=== PATIENT | female | born 1950 | race Caucasian/White ===

== ENCOUNTER 2017-09-07 14:19 | Outpatient (CLI) | payer OTHER ==
[~2017-09-07 14:19] MED LIST: ATORVASTATIN CA20 MG; CARDIZEM120 MG; FLECAINIDE ACE100 MG; ISOSORBIDE DINI30 MG; LEVSIN0.125 MG PO; LIPITOR20 MG; NEURONTIN300 MG PO; PRILOSEC20 MG; PROTONIX40 MG PO; XARELTO20 MG; ZOLOFT50 MG
== END 2017-09-07 14:40 | disposition home or self-care (01) ==
LOC: MRI 14:19
DX: G30.1 Alzheimer's disease with late onset (principal); F01.50 Vascular dementia, unspecified severity, without behavioral disturbance, psychotic disturbance, mood disturbance, and anxiety
CPT/HCPCS: 70551

== ENCOUNTER → 2017-09-12 | Outpatient (CLI) | payer OTHER | END | disposition home or self-care (01) | LOC: LAB 07:59 | DX: E53.8 Deficiency of other specified B group vitamins (principal); G93.41 Metabolic encephalopathy; E03.8 Other specified hypothyroidism ==

== ENCOUNTER 2017-10-24 08:16 | Outpatient (CLI) | payer OTHER | END 2017-10-24 08:23 | disposition home or self-care (01) | LOC: LAB 08:16 | DX: R10.13 Epigastric pain (principal); K30 Functional dyspepsia ==

== ENCOUNTER 2017-10-24 08:44 | Outpatient (CLI) | payer OTHER | END 2017-10-24 17:00 | disposition home or self-care (01) | LOC: SONOGRAMA 08:44 | DX: R10.13 Epigastric pain (principal); K30 Functional dyspepsia ==

== ENCOUNTER 2017-10-24 08:53 | Outpatient (CLI) | payer OTHER | END 2017-10-24 17:00 | disposition home or self-care (01) | LOC: RX STUDY 08:53 | DX: R10.13 Epigastric pain (principal); K30 Functional dyspepsia ==

== ENCOUNTER 2017-11-14 07:13 | Outpatient (CLI) | payer OTHER | END 2017-11-14 07:20 | disposition home or self-care (01) | LOC: LAB 07:13 | DX: D64.89 Other specified anemias (principal); N39.0 Urinary tract infection, site not specified; E03.8 Other specified hypothyroidism; R80.8 Other proteinuria; E78.5 Hyperlipidemia, unspecified; E11.9 Type 2 diabetes mellitus without complications; R73.09 Other abnormal glucose; I48.0 Paroxysmal atrial fibrillation; I11.9 Hypertensive heart disease without heart failure; R73.02 Impaired glucose tolerance (oral); E78.2 Mixed hyperlipidemia; R10.84 Generalized abdominal pain ==

== ENCOUNTER 2018-01-04 07:06 | Outpatient (CLI) | payer OTHER | END 2018-01-04 07:15 | disposition home or self-care (01) | LOC: NUCLEAR 07:06 | DX: R10.13 Epigastric pain (principal); K30 Functional dyspepsia | CPT/HCPCS: 78227; A9537; J2805 ==

== ENCOUNTER 2018-04-27 07:55 | Outpatient (CLI) | payer OTHER | END 2018-04-27 08:07 | disposition home or self-care (01) | LOC: LAB 07:55 | DX: N91.2 Amenorrhea, unspecified (principal); E34.8 Other specified endocrine disorders; R19.00 Intra-abdominal and pelvic swelling, mass and lump, unspecified site; N39.0 Urinary tract infection, site not specified; N30.00 Acute cystitis without hematuria ==

== ENCOUNTER 2018-06-22 07:30 | Outpatient (CLI) | payer OTHER | END 2018-06-22 07:35 | disposition home or self-care (01) | LOC: LAB 07:30 | DX: E11.9 Type 2 diabetes mellitus without complications (principal); I10 Essential (primary) hypertension; E03.8 Other specified hypothyroidism; E78.2 Mixed hyperlipidemia; M81.0 Age-related osteoporosis without current pathological fracture ==

== ENCOUNTER 2018-07-19 08:50 | Outpatient (CLI) | payer OTHER | END 2018-07-19 08:55 | disposition home or self-care (01) | LOC: LAB 08:50 | DX: R10.13 Epigastric pain (principal); K30 Functional dyspepsia ==

== ENCOUNTER → 2018-07-24 | Outpatient (CLI) | payer OTHER | END | disposition home or self-care (01) | LOC: TOM 07:30 | DX: R10.12 Left upper quadrant pain (principal) | CPT/HCPCS: 74177; Q9965 ==

== ENCOUNTER 2018-09-13 11:33 | Outpatient (CLI) | payer OTHER | END 2018-09-13 17:00 | disposition home or self-care (01) | LOC: MAMO-SONO 11:33 | DX: Z12.31 Encounter for screening mammogram for malignant neoplasm of breast (principal); Z87.898 Personal history of other specified conditions; N64.89 Other specified disorders of breast; I10 Essential (primary) hypertension; M54.5 Low back pain; E03.8 Other specified hypothyroidism; E66.8 Other obesity; M89.8X0 Other specified disorders of bone, multiple sites; G62.89 Other specified polyneuropathies; Z12.11 Encounter for screening for malignant neoplasm of colon; I11.9 Hypertensive heart disease without heart failure; K21.9 Gastro-esophageal reflux disease without esophagitis; F41.8 Other specified anxiety disorders; M54.14 Radiculopathy, thoracic region ==

== ENCOUNTER 2018-09-17 09:24 | Outpatient (CLI) | payer OTHER | END 2018-09-17 09:39 | disposition home or self-care (01) | LOC: LAB 09:24 | DX: I10 Essential (primary) hypertension (principal); M54.5 Low back pain; E03.8 Other specified hypothyroidism; E66.8 Other obesity; K21.9 Gastro-esophageal reflux disease without esophagitis; M54.14 Radiculopathy, thoracic region; I11.9 Hypertensive heart disease without heart failure; Z12.11 Encounter for screening for malignant neoplasm of colon; M89.8X8 Other specified disorders of bone, other site; G62.89 Other specified polyneuropathies; F41.8 Other specified anxiety disorders; I49.8 Other specified cardiac arrhythmias; I73.89 Other specified peripheral vascular diseases ==

== ENCOUNTER 2018-09-18 12:00 | Outpatient (CLI) | payer OTHER | END 2018-09-18 16:38 | disposition home or self-care (01) | LOC: LAB 12:00 | DX: I10 Essential (primary) hypertension (principal); M54.5 Low back pain; E03.8 Other specified hypothyroidism; E66.8 Other obesity; M89.8X9 Other specified disorders of bone, unspecified site; G62.89 Other specified polyneuropathies; K21.9 Gastro-esophageal reflux disease without esophagitis; F41.8 Other specified anxiety disorders; M54.14 Radiculopathy, thoracic region; I11.9 Hypertensive heart disease without heart failure; Z12.11 Encounter for screening for malignant neoplasm of colon; I73.89 Other specified peripheral vascular diseases; I49.8 Other specified cardiac arrhythmias ==

== ENCOUNTER 2018-11-21 14:42 | Outpatient (CLI) | payer OTHER | END 2018-11-21 14:45 | disposition home or self-care (01) | LOC: LAB 14:42 | DX: D64.0 Hereditary sideroblastic anemia (principal); R10.9 Unspecified abdominal pain ==

== ENCOUNTER 2018-11-22 08:05 | Outpatient (CLI) | payer OTHER | END 2018-11-22 12:04 | disposition home or self-care (01) | LOC: LAB 08:05 | DX: D64.0 Hereditary sideroblastic anemia (principal); R10.9 Unspecified abdominal pain ==

== ENCOUNTER 2019-03-18 08:42 | Outpatient (CLI) | payer OTHER | END 2019-03-18 10:51 | disposition home or self-care (01) | LOC: TOM 08:42 | DX: R10.84 Generalized abdominal pain (principal) ==

== ENCOUNTER 2019-03-22 07:14 | Outpatient (CLI) | payer OTHER | END 2019-03-22 07:16 | disposition home or self-care (01) | LOC: NUCLEAR 07:14 | DX: I20.8 Other forms of angina pectoris (principal) | CPT/HCPCS: 78452; 93017; A9500; J0153 ==

== ENCOUNTER 2019-06-05 09:10 | Outpatient (CLI) | payer OTHER | END 2019-06-05 09:20 | disposition home or self-care (01) | LOC: LAB 09:10 | DX: I11.9 Hypertensive heart disease without heart failure (principal); K59.1 Functional diarrhea; R19.5 Other fecal abnormalities ==

== ENCOUNTER 2019-06-10 08:50 | Outpatient (CLI) | payer OTHER | END 2019-06-10 09:00 | disposition home or self-care (01) | LOC: SONOGRAMA 08:50 | DX: R10.2 Pelvic and perineal pain (principal); R10.827 Generalized rebound abdominal tenderness ==

== ENCOUNTER 2019-06-20 07:28 | Emergency (ER) | payer OTHER ==
[~2019-06-20] VITALS: Ht 170.2 cm; Wt 61.2 kg
[2019-06-20] MEDS ORDERED: PROPAFENONE HC225 M1 (07:45)
[2019-06-20] MEDS ORDERED: METOCLOPRAMIDE H5 M1 (07:46)
[2019-06-20] MEDS ORDERED: PEPCID AC20 MG (07:47)
[2019-06-20] MEDS ORDERED: [UNRECOGNIZED DRUG - OTHER] (07:48)
[2019-06-20] MEDS ORDERED: ACID REDUCER20 M1 (07:49)
== END 2019-06-20 10:56 | disposition home or self-care (01) ==
LOC: ER 07:28
DX: K52.89 Other specified noninfective gastroenteritis and colitis (principal)

== ENCOUNTER 2019-07-05 10:01 | Outpatient (CLI) | payer OTHER ==
[~2019-07-05 10:01] MED LIST changes: +ACID REDUCER20 M1; +METOCLOPRAMIDE H5 M1; +PEPCID AC20 MG; +PROPAFENONE HC225 M1; +[UNRECOGNIZED DRUG - OTHER]
== END 2019-07-05 10:06 | disposition home or self-care (01) ==
LOC: LAB 10:01
DX: R10.84 Generalized abdominal pain (principal); R19.5 Other fecal abnormalities

== ENCOUNTER 2019-07-26 19:26 | Emergency (ER) | payer OTHER ==
[~2019-07-26] VITALS: Ht 170.2 cm; Wt 63.0 kg
== END 2019-07-26 23:15 | disposition home or self-care (01) ==
LOC: ER 19:26
DX: K52.89 Other specified noninfective gastroenteritis and colitis (principal)

== ENCOUNTER 2019-09-03 19:44 | Emergency (ER) | payer OTHER ==
[~2019-09-03] VITALS: Ht 170.2 cm; Wt 62.6 kg
[2019-09-04] MEDS ORDERED: ENULOSE10 GM/15 M PO (05:58)
== END 2019-09-04 06:11 | disposition home or self-care (01) ==
LOC: ER 19:44
DX: K59.09 Other constipation (principal); R10.84 Generalized abdominal pain

== ENCOUNTER 2019-09-10 09:48 | Emergency (ER) | payer OTHER ==
[~2019-09-10] VITALS: Ht 167.6 cm; Wt 59.9 kg
[~2019-09-10 09:48] MED LIST changes: +ENULOSE10 GM/15 M PO
== END 2019-09-10 14:42 | disposition home or self-care (01) ==
LOC: ER 09:48
DX: K80.80 Other cholelithiasis without obstruction (principal); N28.1 Cyst of kidney, acquired

== ENCOUNTER 2019-09-16 13:47 | Emergency (ER) | payer OTHER ==
[~2019-09-16] VITALS: Ht 154.9 cm; Wt 62.6 kg
== END 2019-09-16 15:44 | disposition left against medical advice (07) ==
LOC: ER 13:47
DX: R07.89 Other chest pain (principal); F41.8 Other specified anxiety disorders

== ENCOUNTER 2019-09-18 11:24 | Emergency (ER) | payer OTHER ==
[~2019-09-18] VITALS: Ht 170.2 cm; Wt 59.9 kg
== END 2019-09-18 14:58 | disposition home or self-care (01) ==
LOC: ER 11:24
DX: R07.89 Other chest pain (principal)

== ENCOUNTER 2019-09-22 14:32 | Emergency (ER) | payer OTHER ==
[~2019-09-22] VITALS: Ht 170.2 cm; Wt 61.2 kg
== END 2019-09-23 01:04 | disposition home or self-care (01) ==
LOC: ER 14:32
DX: G45.8 Other transient cerebral ischemic attacks and related syndromes (principal)

== ENCOUNTER 2019-10-02 08:22 | Outpatient (CLI) | payer OTHER | END 2019-10-02 09:23 | disposition home or self-care (01) | LOC: TOM 08:22 | DX: R10.84 Generalized abdominal pain (principal) ==

== ENCOUNTER 2019-10-02 10:23 | Outpatient (CLI) | payer OTHER | END 2019-10-02 10:24 | disposition home or self-care (01) | LOC: LAB 10:23 | DX: E11.9 Type 2 diabetes mellitus without complications (principal); I10 Essential (primary) hypertension; E03.8 Other specified hypothyroidism; E78.2 Mixed hyperlipidemia; Z12.11 Encounter for screening for malignant neoplasm of colon; D64.0 Hereditary sideroblastic anemia; C78.00 Secondary malignant neoplasm of unspecified lung; R63.4 Abnormal weight loss; K51.90 Ulcerative colitis, unspecified, without complications; R97.1 Elevated cancer antigen 125 [CA 125]; E04.2 Nontoxic multinodular goiter; R97.8 Other abnormal tumor markers; C79.81 Secondary malignant neoplasm of breast; R19.00 Intra-abdominal and pelvic swelling, mass and lump, unspecified site; C18.8 Malignant neoplasm of overlapping sites of colon; K85.80 Other acute pancreatitis without necrosis or infection ==

== ENCOUNTER 2019-10-08 13:10 | Emergency (ER) | payer OTHER ==
[~2019-10-08] VITALS: Ht 170.2 cm; Wt 60.8 kg
== END 2019-10-08 15:43 | disposition home or self-care (01) ==
LOC: ER 13:10
DX: R07.89 Other chest pain (principal); F06.4 Anxiety disorder due to known physiological condition

== ENCOUNTER 2019-11-06 13:47 | Emergency (ER) | payer OTHER ==
[~2019-11-06] VITALS: Ht 170.2 cm; Wt 61.2 kg
== END 2019-11-06 16:55 | disposition home or self-care (01) ==
LOC: ER 13:47
DX: R10.84 Generalized abdominal pain (principal)

== ENCOUNTER 2019-11-08 11:48 | Emergency (ER) | payer OTHER ==
[~2019-11-08] VITALS: Ht 170.2 cm; Wt 61.2 kg
== END 2019-11-08 13:03 | disposition home or self-care (01) ==
LOC: ER 11:48
DX: R00.2 Palpitations (principal); F41.1 Generalized anxiety disorder

== ENCOUNTER 2020-01-10 09:47 | Emergency (ER) | payer OTHER ==
[~2020-01-10] VITALS: Ht 170.2 cm; Wt 56.7 kg
== END 2020-01-10 11:06 | disposition home or self-care (01) ==
LOC: ER 09:47
DX: I49.8 Other specified cardiac arrhythmias (principal); F41.8 Other specified anxiety disorders

== ENCOUNTER 2020-01-20 12:21 | Emergency (ER) | payer OTHER ==
[~2020-01-20] VITALS: Ht 170.2 cm; Wt 59.0 kg
[2020-01-20] MEDS ORDERED: DICY20TA PO (12:36)
[2020-01-20] MEDS ORDERED: ARICEPT10 MG PO (12:37)
[2020-01-20] MEDS ORDERED: HYDROXYZIN10 MG/5 ML PO (12:37)
[2020-01-20] MEDS ORDERED: PEPCID AC20 MG PO (13:29)
== END 2020-01-20 14:00 | disposition home or self-care (01) ==
LOC: ER 12:21
DX: K29.60 Other gastritis without bleeding (principal)

== ENCOUNTER 2020-01-22 11:19 | Emergency (ER) | payer OTHER ==
[~2020-01-22] VITALS: Ht 170.2 cm; Wt 56.7 kg
[~2020-01-22 11:19] MED LIST changes: +ARICEPT10 MG PO; +DICY20TA PO; +HYDROXYZIN10 MG/5 ML PO; +PEPCID AC20 MG PO
[2020-01-22] MEDS ORDERED: PEPCID AC20 MG PO (12:40)
[2020-01-22] MEDS ORDERED: INTESTINEX680 M1 PO (12:40)
== END 2020-01-22 12:56 | disposition home or self-care (01) ==
LOC: ER 11:19
DX: K29.60 Other gastritis without bleeding (principal)

== ENCOUNTER 2020-02-01 12:35 | Emergency (ER) | payer OTHER ==
[~2020-02-01] VITALS: Ht 170.2 cm; Wt 57.2 kg
[~2020-02-01 12:35] MED LIST changes: +INTESTINEX680 M1 PO
== END 2020-02-01 14:07 | disposition home or self-care (01) ==
LOC: ER 12:35
DX: K29.60 Other gastritis without bleeding (principal)

== ENCOUNTER → 2020-02-07 | Emergency (ER) | payer OTHER ==
[~2020-02-07] VITALS: Ht 170.2 cm; Wt 56.7 kg
[~2020-02-07] MED LIST changes: +CARAFATE1 GM/10 ML PO; +OMEPRAZOLE MAGN20 MG PO; +ONDANSETRON HCL4 MG PO; +SYSTANE COMPLE1.5 ML OP; +XIIDRA1 EACH OP; +ZOFRAN8 MG PO
== END | disposition left against medical advice (07) ==
LOC: ER 14:11 → EKG 14:25 → ER 14:25
DX: Z53.21 Procedure and treatment not carried out due to patient leaving prior to being seen by health care provider (principal)

== ENCOUNTER 2020-02-10 12:49 | Emergency (ER) | payer OTHER ==
[~2020-02-10] VITALS: Ht 170.2 cm; Wt 55.8 kg
[~2020-02-10 12:49] MED LIST changes: -CARAFATE1 GM/10 ML PO; -OMEPRAZOLE MAGN20 MG PO; -ONDANSETRON HCL4 MG PO; -SYSTANE COMPLE1.5 ML OP; -XIIDRA1 EACH OP; -ZOFRAN8 MG PO
[2020-02-10] MEDS ORDERED: ONDANSETRON HCL4 MG PO (13:15)
[2020-02-10] MEDS ORDERED: CARAFATE1 GM/10 ML PO (13:15)
[2020-02-10] MEDS ORDERED: SYSTANE COMPLE1.5 ML OP (13:15)
[2020-02-10] MEDS ORDERED: XIIDRA1 EACH OP (13:15)
[2020-02-10] MEDS ORDERED: OMEPRAZOLE MAGN20 MG PO (13:16)
[2020-02-10] MEDS ORDERED: ZOFRAN8 MG PO (13:17)
[2020-02-10] MEDS ORDERED: PEPCID AC20 MG PO (13:59)
[2020-02-11] MEDS ORDERED: PEPCID AC20 MG PO (15:45)
== END 2020-02-10 14:08 | disposition home or self-care (01) ==
LOC: ER 12:49
DX: K29.60 Other gastritis without bleeding (principal); Z76.0 Encounter for issue of repeat prescription

== ENCOUNTER 2020-02-11 13:57 | Emergency (ER) | payer OTHER ==
[~2020-02-11] VITALS: Ht 170.2 cm; Wt 56.7 kg
[~2020-02-11 13:57] MED LIST changes: +CARAFATE1 GM/10 ML PO; +OMEPRAZOLE MAGN20 MG PO; +ONDANSETRON HCL4 MG PO; +SYSTANE COMPLE1.5 ML OP; +XIIDRA1 EACH OP; +ZOFRAN8 MG PO
[2020-02-11] MEDS ORDERED: PEPCID AC20 MG PO (15:45)
== END 2020-02-11 15:59 | disposition home or self-care (01) ==
LOC: ER 13:57
DX: K29.50 Unspecified chronic gastritis without bleeding (principal); R10.13 Epigastric pain; Z60.2 Problems related to living alone

== ENCOUNTER 2020-02-25 12:14 | Emergency (ER) | payer OTHER ==
[~2020-02-25] VITALS: Ht 170.2 cm; Wt 63.5 kg
== END 2020-02-25 13:25 | disposition home or self-care (01) ==
LOC: ER 12:14
DX: K29.60 Other gastritis without bleeding (principal)

== ENCOUNTER 2020-03-06 16:32 | Emergency (ER) | payer OTHER ==
[~2020-03-06] VITALS: Ht 170.2 cm; Wt 56.2 kg
[2020-03-06] MEDS ORDERED: CIPRO500 MG (16:50)
[2020-03-06] MEDS ORDERED: PROTONIX40 M1 (16:51)
[2020-03-06] MEDS ORDERED: CARDIZEM120 MG (23:46)
[2020-03-06] MEDS ORDERED: ATORVASTATIN CA20 MG (23:46)
[2020-03-06] MEDS ORDERED: PANTOPRAZOLE SO40 MG (23:46)
[2020-03-06] MEDS ORDERED: PROPAFENONE HC225 M1 (23:47)
== END 2020-03-06 17:46 | disposition home or self-care (01) ==
LOC: ER 16:32
DX: R10.13 Epigastric pain (principal)

== ENCOUNTER 2020-03-06 22:40 | Emergency (ER) | payer OTHER ==
[~2020-03-06] VITALS: Ht 170.2 cm; Wt 56.2 kg
[~2020-03-06 22:40] MED LIST changes: +CIPRO500 MG; +PROTONIX40 M1
[2020-03-06] MEDS ORDERED: CARDIZEM120 MG (23:46)
[2020-03-06] MEDS ORDERED: ATORVASTATIN CA20 MG (23:46)
[2020-03-06] MEDS ORDERED: PANTOPRAZOLE SO40 MG (23:46)
[2020-03-06] MEDS ORDERED: PROPAFENONE HC225 M1 (23:47)
== END 2020-03-07 02:28 | disposition left against medical advice (07) ==
LOC: ER 22:40
DX: I49.8 Other specified cardiac arrhythmias (principal)

== ENCOUNTER 2020-03-10 08:58 | Emergency (ER) | payer OTHER ==
[~2020-03-10] VITALS: Ht 170.2 cm; Wt 55.8 kg
[~2020-03-10 08:58] MED LIST changes: +PANTOPRAZOLE SO40 MG
[2020-03-10] MEDS ORDERED: PEPCID AC20 MG PO (11:20)
== END 2020-03-10 11:31 | disposition home or self-care (01) ==
LOC: ER 08:58
DX: K29.00 Acute gastritis without bleeding (principal); Z03.818 Encounter for observation for suspected exposure to other biological agents ruled out

== ENCOUNTER 2020-03-23 23:09 | Emergency (ER) | payer OTHER ==
[~2020-03-23] VITALS: Ht 170.2 cm; Wt 56.2 kg
[2020-03-24] MEDS ORDERED: VISTARIL50 MG PO (01:40)
== END 2020-03-24 02:04 ==
LOC: ER 23:09
DX: R00.2 Palpitations (principal)

== ENCOUNTER 2020-03-26 08:51 | Emergency (ER) | payer OTHER ==
[~2020-03-26] VITALS: Ht 162.6 cm; Wt 54.4 kg
[~2020-03-26 08:51] MED LIST changes: +VISTARIL50 MG PO
[2020-03-26] MEDS ORDERED: PEPCID AC20 MG PO (13:13)
[2020-03-26] MEDS ORDERED: APETIGEN-PLUS1 EACH PO (13:13)
== END 2020-03-26 14:30 | disposition home or self-care (01) ==
LOC: ER 08:51
DX: K29.00 Acute gastritis without bleeding (principal)

== ENCOUNTER 2020-04-03 09:18 | Emergency (ER) | payer OTHER ==
[~2020-04-03] VITALS: Ht 170.2 cm; Wt 59.0 kg
[~2020-04-03 09:18] MED LIST changes: +APETIGEN-PLUS1 EACH PO
== END 2020-04-03 09:50 | disposition home or self-care (01) ==
LOC: ER 09:18
DX: K29.70 Gastritis, unspecified, without bleeding (principal)

== ENCOUNTER 2020-04-07 08:35 | Emergency (ER) | payer OTHER ==
[~2020-04-07] VITALS: Ht 170.2 cm; Wt 54.9 kg
[2020-04-07] MEDS ORDERED: CARAFATE1 GM PO (13:46)
[2020-04-07] MEDS ORDERED: PEPCID20 MG PO (13:46)
== END 2020-04-07 13:52 | disposition home or self-care (01) ==
LOC: ER 08:35
DX: R10.13 Epigastric pain (principal); K25.9 Gastric ulcer, unspecified as acute or chronic, without hemorrhage or perforation; Z20.828 Contact with and (suspected) exposure to other viral communicable diseases

== ENCOUNTER 2020-04-08 09:49 | Outpatient (CLI) | payer OTHER ==
[~2020-04-08 09:49] MED LIST changes: +CARAFATE1 GM PO; +PEPCID20 MG PO
== END 2020-04-08 17:37 | disposition home or self-care (01) ==
LOC: LAB 09:49
PROVIDERS: ATTEND Internal Medicine Cardiovascular Disease
DX: R05 Cough (principal); Z20.828 Contact with and (suspected) exposure to other viral communicable diseases; R06.2 Wheezing; R50.9 Fever, unspecified

== ENCOUNTER → 2020-04-13 | Emergency (ER) | payer OTHER ==
[~2020-04-13] VITALS: Ht 162.6 cm; Wt 63.5 kg
== END | disposition left against medical advice (07) ==
LOC: ER 10:47
DX: Z53.21 Procedure and treatment not carried out due to patient leaving prior to being seen by health care provider (principal)

== ENCOUNTER → 2020-04-16 | Outpatient (CLI) | payer OTHER | END | disposition home or self-care (01) | LOC: SONOGRAMA 10:08 | PROVIDERS: ATTEND Radiology Diagnostic Radiology | DX: R10.84 Generalized abdominal pain (principal) ==

== ENCOUNTER 2020-04-19 11:42 | Emergency (ER) | payer OTHER ==
[~2020-04-19] VITALS: Ht 170.2 cm; Wt 54.4 kg
== END 2020-04-19 15:02 | disposition home or self-care (01) ==
LOC: ER 11:42
DX: K52.89 Other specified noninfective gastroenteritis and colitis (principal); I49.8 Other specified cardiac arrhythmias; F41.8 Other specified anxiety disorders

== ENCOUNTER → 2020-04-22 | Emergency (ER) | payer OTHER ==
[~2020-04-22] VITALS: Ht 170.2 cm; Wt 55.8 kg
== END | disposition left against medical advice (07) ==
LOC: ER 16:35
DX: R07.89 Other chest pain (principal); F06.4 Anxiety disorder due to known physiological condition; R10.13 Epigastric pain

== ENCOUNTER → 2020-04-24 | Emergency (ER) | payer OTHER ==
[~2020-04-24] VITALS: Ht 170.2 cm; Wt 59.0 kg
== END | disposition left against medical advice (07) ==
LOC: ER 15:01
DX: Z53.21 Procedure and treatment not carried out due to patient leaving prior to being seen by health care provider (principal)

== ENCOUNTER 2021-07-13 12:51 | Emergency (ER) | payer OTHER ==
[~2021-07-13] VITALS: Ht 170.2 cm; Wt 51.3 kg
[2021-07-13] MEDS ORDERED: FAMOTIDINE10 MG (13:32)
[2021-07-13] MEDS ORDERED: FAMOTIDINE20 MG PO (13:32)
[2021-07-13] MEDS ORDERED: DILTIAZEM ER120 M2 (13:33)
[2021-07-13] MEDS ORDERED: PANTOPRAZOLE SO40 MG PO (13:34)
[2021-07-13] MEDS ORDERED: APETIGEN-PLUS1 EACH PO (13:34)
[2021-07-13] MEDS ORDERED: XARELTO20 MG PO (13:35)
[2021-07-16] MEDS ORDERED: APETIGEN-PLUS1 EACH (18:51)
== END 2021-07-13 17:09 | disposition home or self-care (01) ==
LOC: ER 12:51
DX: R07.89 Other chest pain (principal)

== ENCOUNTER 2021-07-15 12:11 | Emergency (ER) | payer OTHER ==
[~2021-07-15] VITALS: Ht 170.2 cm; Wt 49.9 kg
[~2021-07-15 12:11] MED LIST changes: +DILTIAZEM ER120 M2; +FAMOTIDINE10 MG; +FAMOTIDINE20 MG PO; +PANTOPRAZOLE SO40 MG PO; +XARELTO20 MG PO
[2021-07-16] MEDS ORDERED: APETIGEN-PLUS1 EACH (18:51)
== END 2021-07-15 13:49 | disposition home or self-care (01) ==
LOC: ER 12:11
DX: K29.70 Gastritis, unspecified, without bleeding (principal)

== ENCOUNTER → 2021-07-16 | Emergency (ER) | payer OTHER ==
[~2021-07-16] VITALS: Ht 165.1 cm; Wt 49.9 kg
[~2021-07-16] MED LIST changes: +APETIGEN-PLUS1 EACH; +DOLOGESIC 500-1 EACH PO; +DULCOLAX5 MG PO; +GAS-X125 M1 PO
== END | disposition left against medical advice (07) ==
LOC: ER 18:36
DX: R10.13 Epigastric pain (principal); K29.70 Gastritis, unspecified, without bleeding

== ENCOUNTER 2021-07-18 15:04 | Emergency (ER) | payer OTHER ==
[~2021-07-18] VITALS: Ht 170.2 cm; Wt 49.9 kg
[~2021-07-18 15:04] MED LIST changes: -DOLOGESIC 500-1 EACH PO; -DULCOLAX5 MG PO; -GAS-X125 M1 PO
[2021-07-18] MEDS ORDERED: DULCOLAX5 MG PO (15:29)
[2021-07-18] MEDS ORDERED: GAS-X125 M1 PO (15:29)
== END 2021-07-18 15:48 | disposition home or self-care (01) ==
LOC: ER 15:04
DX: K59.00 Constipation, unspecified (principal)

== ENCOUNTER 2021-07-19 18:00 | Emergency (ER) | payer OTHER ==
[~2021-07-19] VITALS: Ht 170.2 cm; Wt 56.7 kg
[~2021-07-19 18:00] MED LIST changes: +DULCOLAX5 MG PO; +GAS-X125 M1 PO
== END 2021-07-19 20:38 | disposition home or self-care (01) ==
LOC: ER 18:00
DX: R10.13 Epigastric pain (principal)

== ENCOUNTER 2021-07-21 12:42 | Emergency (ER) | payer OTHER ==
[~2021-07-21] VITALS: Ht 170.2 cm
[2021-07-21] MEDS ORDERED: INTESTINEX680 M1 PO (14:10)
[2021-07-21] MEDS ORDERED: DOLOGESIC 500-1 EACH PO (14:10)
== END 2021-07-21 14:18 | disposition home or self-care (01) ==
LOC: ER 12:42
DX: M79.641 Pain in right hand (principal)

== ENCOUNTER 2021-07-22 17:31 | Emergency (ER) | payer OTHER ==
[~2021-07-22] VITALS: Ht 167.6 cm; Wt 49.9 kg
[~2021-07-22 17:31] MED LIST changes: +DOLOGESIC 500-1 EACH PO
== END 2021-07-22 19:48 | disposition left against medical advice (07) ==
LOC: ER 17:31
DX: R06.02 Shortness of breath (principal)

== ENCOUNTER 2021-07-24 16:37 | Emergency (ER) | payer OTHER ==
[~2021-07-24] VITALS: Ht 165.1 cm; Wt 54.4 kg
== END 2021-07-24 18:01 | disposition home or self-care (01) ==
LOC: ER 16:37
DX: K21.9 Gastro-esophageal reflux disease without esophagitis (principal); Z76.0 Encounter for issue of repeat prescription

== ENCOUNTER 2021-07-27 17:57 | Emergency (ER) | payer OTHER ==
[~2021-07-27] VITALS: Ht 170.2 cm; Wt 68.0 kg
== END 2021-07-28 06:25 | disposition home or self-care (01) ==
LOC: ER 17:57
DX: K21.9 Gastro-esophageal reflux disease without esophagitis (principal); R10.13 Epigastric pain

== ENCOUNTER → 2021-07-29 | Emergency (ER) | payer OTHER ==
[~2021-07-29] VITALS: Ht 170.2 cm; Wt 49.9 kg
== END | disposition left against medical advice (07) ==
LOC: ER 18:42
DX: R10.13 Epigastric pain (principal)

== ENCOUNTER 2021-07-31 15:35 | Emergency (ER) | payer OTHER ==
[~2021-07-31] VITALS: Ht 170.2 cm; Wt 54.4 kg
== END 2021-07-31 17:24 | disposition left against medical advice (07) ==
LOC: ER 15:35
DX: R10.11 Right upper quadrant pain (principal); R10.13 Epigastric pain

== ENCOUNTER → 2021-08-01 | Emergency (ER) | payer OTHER | END | disposition left against medical advice (07) | LOC: ER 18:45 | DX: Z53.20 Procedure and treatment not carried out because of patient's decision for unspecified reasons (principal) ==

== ENCOUNTER 2021-08-04 15:30 | Emergency (ER) | payer OTHER ==
[~2021-08-04] VITALS: Ht 170.2 cm; Wt 51.3 kg
== END 2021-08-04 16:49 | disposition home or self-care (01) ==
LOC: ER 15:30
DX: R53.1 Weakness (principal)

== ENCOUNTER 2021-08-06 17:27 | Emergency (ER) | payer OTHER ==
[~2021-08-06] VITALS: Ht 170.2 cm; Wt 68.0 kg
[2021-08-06] MEDS ORDERED: PEPCID AC20 MG PO (20:29)
[2021-08-06] MEDS ORDERED: LEVSIN/SL0.125 MG PO (20:29)
== END 2021-08-06 20:37 | disposition home or self-care (01) ==
LOC: ER 17:27
DX: K29.70 Gastritis, unspecified, without bleeding (principal); R10.13 Epigastric pain

== ENCOUNTER → 2021-08-08 | Emergency (ER) | payer OTHER ==
[~2021-08-08] MED LIST changes: +LEVSIN/SL0.125 MG PO
== END | disposition left against medical advice (07) ==
LOC: ER 14:41
DX: Z53.20 Procedure and treatment not carried out because of patient's decision for unspecified reasons (principal)

== ENCOUNTER 2021-08-11 17:10 | Emergency (ER) | payer OTHER ==
[~2021-08-11] VITALS: Ht 170.2 cm; Wt 51.7 kg
[2021-08-16] MEDS ORDERED: PEPCID AC20 MG PO (18:37)
== END 2021-08-11 19:20 | disposition home or self-care (01) ==
LOC: ER 17:10
DX: R10.13 Epigastric pain (principal)

== ENCOUNTER 2021-08-20 12:24 | Emergency (ER) | payer OTHER ==
[~2021-08-20] VITALS: Ht 170.2 cm; Wt 51.7 kg
[2021-08-20] MEDS ORDERED: PEPCID AC20 MG PO (14:11)
== END 2021-08-20 14:39 | disposition home or self-care (01) ==
LOC: ER 12:24
DX: K29.70 Gastritis, unspecified, without bleeding (principal)

== ENCOUNTER → 2021-08-25 | Emergency (ER) | payer OTHER ==
[~2021-08-25] VITALS: Ht 170.2 cm; Wt 52.6 kg
== END | disposition home or self-care (01) ==
LOC: ER 21:28
DX: K29.70 Gastritis, unspecified, without bleeding (principal); R10.13 Epigastric pain

== ENCOUNTER → 2021-08-26 | Emergency (ER) | payer OTHER ==
[~2021-08-26] VITALS: Ht 170.2 cm; Wt 53.5 kg
== END | disposition left against medical advice (07) ==
LOC: ER 16:01
DX: Z53.21 Procedure and treatment not carried out due to patient leaving prior to being seen by health care provider (principal)

== ENCOUNTER 2021-08-29 15:52 | Emergency (ER) | payer OTHER ==
[~2021-08-29] VITALS: Ht 165.1 cm; Wt 50.8 kg
== END 2021-08-29 16:38 | disposition home or self-care (01) ==
LOC: ER 15:52
DX: K29.70 Gastritis, unspecified, without bleeding (principal); F06.4 Anxiety disorder due to known physiological condition

== ENCOUNTER → 2021-08-31 | Emergency (ER) | payer OTHER ==
[~2021-08-31] VITALS: Ht 165.1 cm; Wt 54.4 kg
== END | disposition left against medical advice (07) ==
LOC: ER 14:54
DX: Z53.20 Procedure and treatment not carried out because of patient's decision for unspecified reasons (principal)

== ENCOUNTER → 2021-09-03 | Emergency (ER) | payer OTHER ==
[~2021-09-03] VITALS: Ht 170.2 cm; Wt 53.1 kg
== END | disposition left against medical advice (07) ==
LOC: ER 14:06
DX: Z53.20 Procedure and treatment not carried out because of patient's decision for unspecified reasons (principal)

== ENCOUNTER 2021-09-15 14:29 | Emergency (ER) | payer OTHER ==
[~2021-09-15] VITALS: Ht 165.1 cm; Wt 53.1 kg
[2021-09-15] MEDS ORDERED: APETIGEN P12.5 MG/15 PO (16:45)
== END 2021-09-15 16:57 | disposition home or self-care (01) ==
LOC: ER 14:29
DX: K29.70 Gastritis, unspecified, without bleeding (principal); R10.9 Unspecified abdominal pain

== ENCOUNTER 2021-09-21 17:29 | Emergency (ER) | payer OTHER ==
[~2021-09-21] VITALS: Ht 170.2 cm; Wt 45.4 kg
[~2021-09-21 17:29] MED LIST changes: +APETIGEN P12.5 MG/15 PO
== END 2021-09-21 18:05 | disposition home or self-care (01) ==
LOC: ER 17:29
DX: K21.9 Gastro-esophageal reflux disease without esophagitis (principal)

== ENCOUNTER 2021-09-26 12:57 | Emergency (ER) | payer OTHER ==
[~2021-09-26] VITALS: Ht 170.2 cm; Wt 59.0 kg
[2021-09-26] MEDS ORDERED: CARAFATE1 GM PO (16:15)
[2021-09-26] MEDS ORDERED: MULTI VITAMIN1 EACH PO (16:15)
== END 2021-09-26 16:27 | disposition home or self-care (01) ==
LOC: ER 12:57
DX: R10.13 Epigastric pain (principal); K21.9 Gastro-esophageal reflux disease without esophagitis

== ENCOUNTER 2021-09-28 16:18 | Emergency (ER) | payer OTHER ==
[~2021-09-28] VITALS: Ht 170.2 cm; Wt 54.4 kg
[~2021-09-28 16:18] MED LIST changes: +MULTI VITAMIN1 EACH PO
[2021-09-28] MEDS ORDERED: PEPCID AC20 MG PO (18:12)
== END 2021-09-28 18:57 | disposition home or self-care (01) ==
LOC: ER 16:18
DX: R10.84 Generalized abdominal pain (principal)